=== PATIENT | female | born 1970 | race African-American/Black ===

== ENCOUNTER 2017-04-05 05:22 | Emergency (ER) | payer BC, MEDICAID ==
[~2017-04-05] VITALS: Ht 170.2 cm; Wt 69.0 kg
[2017-04-05 06:58] VITALS: BP 113/63
[2017-04-05] MEDS ORDERED: LIDOCAINE HCL 1% 20ML VIAL (Pyxis) INJ INFIL ONE (07:30)
[2017-04-05] MEDS ORDERED: IBUPROFEN 800MG TABLET PO ONE (08:30)
== END 2017-04-05 08:31 | disposition home or self-care (01) ==
LOC: ER 08:03
DX: T63.301A Toxic effect of unspecified spider venom, accidental (unintentional), initial encounter (principal); L02.414 Cutaneous abscess of left upper limb; Y92.89 Other specified places as the place of occurrence of the external cause; I10 Essential (primary) hypertension; F17.210 Nicotine dependence, cigarettes, uncomplicated; F12.90 Cannabis use, unspecified, uncomplicated
CPT/HCPCS: 10060; 99283; J3490; X7700; Z7610

== ENCOUNTER 2017-04-09 05:06 | Emergency (ER) | payer MEDICAID ==
[~2017-04-09] VITALS: Ht 170.2 cm; Wt 70.0 kg
[2017-04-09] MEDS ORDERED: BACITRACIN ZINC OINT UDPKT TOP ONE (08:30)
[2017-04-09 09:10] VITALS: BP 133/82
== END 2017-04-09 09:33 | disposition home or self-care (01) ==
LOC: ER 08:07
DX: Z48.817 Encounter for surgical aftercare following surgery on the skin and subcutaneous tissue (principal); L72.3 Sebaceous cyst; I10 Essential (primary) hypertension
CPT/HCPCS: 99283

== ENCOUNTER 2018-11-21 05:56 | Emergency (ER) | payer BC, MEDICAID ==
[~2018-11-21] VITALS: Ht 170.2 cm; Wt 73.6 kg
[2018-11-21 09:48] LABS: EOSINOPHILS % 1.1 % (0.0-5.0); HEMATOCRIT. 37.5 % (36.0-48.0); HEMOGLOBIN. 12.6 g/dL (12.0-16.0); LYMPHOCYTES % 42.5 % (20.0-50.0); MEAN CORPUSCULAR HEMOGLOBIN 29.7 pg (28.0-32.0); MEAN CORPUSCULAR VOLUME 88.3 fL (81.0-99.0); MONOCYTES % 8.9 % (2.0-8.0); NEUTROPHILS % 46.5 % (40.0-76.0); PLATELET 437 x1000/uL (130-400); RED BLOOD CELL COUNT 4.25 mill/uL (4.2-5.4); RED CELL DISTRIBUTION WIDTH 14.5 % (11.6-14.6)
[2018-11-21 09:55] LABS: CHLORIDE 110 mEq/L (98-107)
[2018-11-21 10:02] VITALS: BP 117/77
== END 2018-11-21 10:50 | disposition home or self-care (01) ==
LOC: ER 05:56
DX: R22.1 Localized swelling, mass and lump, neck (principal); I10 Essential (primary) hypertension; F12.10 Cannabis abuse, uncomplicated; F17.200 Nicotine dependence, unspecified, uncomplicated
CPT/HCPCS: 36415; 80048; 99283